=== PATIENT | female | born 1930 | race Caucasian/White ===

== ENCOUNTER 2016-10-22 07:51 | Inpatient (IN) | payer OTHER ==
[~2016-10-22] VITALS: Ht 167.6 cm; Wt 76.7 kg
[~2016-10-22 07:51] MED LIST: ACET325T21 PO; AMIO200T PO; APIX5TAB PO; BENZ100C2 PO; CHOL500016 PO; LEVO50TA5 PO; LISI10TA2 PO; MELO-150 PO; METO-269 PO; METO100T11 PO; MOVANTIK25 MG PO; Metoprolol Tartrate PO; NIFE30TA9 PO; OXYC20TA34 PO; POLY17PO5 PO; RANI75TA95 PO; SERT50TA8 PO
--- NOTE | 2016-10-22 08:37 | PHYS DOC ---
Past Medical History Past Medical History: Anxiety, GERD, High Cholesterol, Hypertension, Hypothyroid, Other Additional Past Medical Histor: OSTEOARTHRITIS, VIT D. DEF. Past Surgical History: Appendectomy, Cholecystectomy, Hip Replacement Alcohol Use: None Drug Use: None Adult General Chief Complaint Chief Complaint: FLANK PAIN [facility] HPI Patient is a 86 year old female who presents with family for evaluation of decreased urine output over the past 2-3 days. States she takes Lasix and is making less urine than usual. She denies dysuria or urinary hesitancy. She denies abdominal pain. She denies fever or chills, nausea or vomiting. She does also note some low back pain and rash along left flank that is suspicious for shingles. She states she has never had shingles before. Review of Systems Review of Systems Constitutional: Denies fever or chills [] Eyes: Denies change in visual acuity, redness, or eye pain [] HENT: Denies nasal congestion or sore throat [] Respiratory: Denies cough or shortness of breath [] Cardiovascular: No additional information not addressed in HPI [] GI: Denies abdominal pain, nausea, vomiting, bloody stools or diarrhea [] : Denies dysuria or hematuria [] Musculoskeletal: Denies joint pain [] Integument: Denies skin lesions [] Neurologic: Denies headache, focal weakness or sensory changes [] Endocrine: Denies polyuria or polydipsia [] Allergies Allergies Allergies Coded Allergies Type Severity Reaction Last Updated Verified No Known Drug Allergies 05/31/15 No Physical Exam Physical Exam Constitutional: Well developed, well nourished, no acute distress, non-toxic appearance. [] HENT: Normocephalic, atraumatic, bilateral external ears normal, oropharynx moist, no oral exudates, nose normal. [] Eyes: PERRLA, EOMI. [] Neck: Normal range of motion, supple. [] Cardiovascular:Heart rate regular rhythm [] Lungs & Thorax: Bilateral breath sounds clear to auscultation [] Abdomen: Bowel sounds normal, soft, no tenderness, no masses, no pulsatile masses. [] Skin: Warm, dry, no erythema. [] Back: No midline spinal tenderness, no CVA tenderness. Left flank with dermatomal distribution of appropriately tender papulovesicular rash without induration/crepitance/fluctuance [] Extremities: No tenderness, ROM intact, no edema. [] Neurologic: Alert and oriented X 3, normal motor function, normal sensory function, no focal deficits noted. [] Psychologic: Affect normal, judgement normal, mood normal. [] Current Patient Data Vital Signs Vital Signs Date Time Temp Pulse Resp B/P Pulse Ox O2 Delivery O2 Flow Rate FiO2 10/22/16 08:10 98.5 65 22 196/81 96 Room Air 98.5 Lab Values Laboratory Tests Test 10/22/16 07:53 10/22/16 09:19 Urine Collection Type Unknown Urine Color Yellow Urine Clarity Clear Urine pH 6.5 Urine Specific [place] 1.015 Urine Protein Negativemg/dL (NEG-TRACE) Urine Glucose (UA) Negativemg/dL (NEG) Urine Ketones (Stick) Negativemg/dL (NEG) Urine Blood Negative (NEG) Urine Nitrite Negative (NEG) Urine Bilirubin Negative (NEG) Urine Urobilinogen Dipstick 0.2mg/dL (0.2 mg/dL) Urine Leukocyte Esterase Negative (NEG) Urine RBC 0/HPF (0-2) Urine WBC 0/HPF (0-4) Urine Squamous Epithelial Cells Many/LPF Urine Bacteria 0/HPF (0-FEW) Urine Hyaline Casts Many/HPF White Blood Count 4.9x10^3/uL (4.0-11.0) Red Blood Count 3.39x10^6/uL (3.50-5.40) L Hemoglobin 10.6g/dL (12.0-15.5) L Hematocrit 30.6% (36.0-47.0) L Mean Corpuscular Volume 90fL (79-100) Mean Corpuscular Hemoglobin 31pg (25-35) Mean Corpuscular Hemoglobin Concent 35g/dL (31-37) Red Cell Distribution Width 13.5% (11.5-14.5) Platelet Count 213x10^3/uL (140-400) Neutrophils (%) (Auto) 80% (31-73) H Lymphocytes (%) (Auto) 11% (24-48) L Monocytes (%) (Auto) 8% (0-9) Eosinophils (%) (Auto) 0% (0-3) Basophils (%) (Auto) 1% (0-3) Neutrophils # (Auto) 3.9x10^3uL (1.8-7.7) Lymphocytes # (Auto) 0.5x10^3/uL (1.0-4.8) L Monocytes # (Auto) 0.4x10^3/uL (0.0-1.1) Eosinophils # (Auto) 0.0x10^3/uL (0.0-0.7) Basophils # (Auto) 0.0x10^3/uL (0.0-0.2) Sodium Level 139mmol/L (136-145) Potassium Level 2.8mmol/L (3.5-5.1) *L Chloride Level 96mmol/L (98-107) L Carbon Dioxide Level 34mmol/L (21-32) H Anion Gap 9 (6-14) Blood Urea Nitrogen 64mg/dL (7-20) H Creatinine 2.2mg/dL (0.6-1.0) H Estimated GFR (Cockcroft-Gault) 21.1 Glucose Level 107mg/dL (70-99) H Calcium Level 9.6mg/dL (8.5-10.1) Laboratory Tests 10/22/16 09:19 Laboratory Tests 10/22/16 09:19 Course & Med Decision Making Course & Med Decision Making Pertinent Labs and Imaging studies reviewed. (See chart for details) She has shingles of her left flank. Lab evaluation is remarkable for hypokalemia and acute renal failure. Potassium ordered po for replacement. Will admit for further treatment of acute renal failure. Discussed case with Dr. Altamirano, on-call for Dr. Fajardo, who will admit. Dragon Disclaimer Dragon Disclaimer This electronic medical record was generated, in whole or in part, using a voice recognition dictation system. Departure Departure Impression: Primary Impression: Acute renal failure Additional Impression: Shingles Disposition: ADMITTED INPATIENT Condition: STABLE Referrals: MARYCRUZ FAJARDO MD (PCP) Problem Qualifiers Primary Impression: Acute renal failure Acute renal failure type: unspecified Qualified Code: N17.9 - Acute kidney failure, unspecified Additional Impression: Shingles Herpes zoster complications: without complications Qualified Code: B02.9 - Zoster without complications Eladia CONNELL MD Oct 22, 2016 08:37
[2016-10-22 09:06] LABS: BILIRUBIN,URINE NEGATIVE (NEG); GLUCOSE,URINE NEGATIVE (NEG); NITRITE,URINE NEGATIVE (NEG); PH,URINE 6.5; PROTEIN,URINE NEGATIVE (NEG-TRACE); UROBILINOGEN,URINE 0.2 mg/dL (0.2 mg/dL)
[2016-10-22 09:13] LABS: BACTERIA,URINE 0 /HPF (0-FEW); RBC,URINE 0 /HPF (0-2); SQUAMOUS EPITHELIAL CELL,UR MANY /LPF; WBC,URINE 0 /HPF (0-4)
[2016-10-22 09:30] LABS: BASO % 1 % (0-3); EOS % 0 % (0-3); HEMATOCRIT 30.6 % (36.0-47.0); HEMOGLOBIN 10.6 g/dL (12.0-15.5); LYMPH # 0.5 x10^3/uL (1.0-4.8); LYMPH % 11 % (24-48); MEAN CORPUSCULAR HEMOGLOBIN 31 pg (25-35); MEAN CORPUSCULAR HGB CONC 35 g/dL (31-37); MEAN CORPUSCULAR VOLUME 90 fL (79-100); MONO % 8 % (0-9); NEUT % 80 % (31-73); PLATELET COUNT 213 x10^3/uL (140-400); RED BLOOD COUNT 3.39 x10^6/uL (3.50-5.40); RED CELL DISTRIBUTION WIDTH 13.5 % (11.5-14.5); WHITE BLOOD COUNT 4.9 x10^3/uL (4.0-11.0)
[2016-10-22 09:43] LABS: CALCIUM 9.6 mg/dL (8.5-10.1); CREATININE 2.2 mg/dL (0.6-1.0); GFR 21.1
[2016-10-22 09:45] LABS: POTASSIUM 2.8 mmol/L (3.5-5.1)
[2016-10-22] MEDS ORDERED: IV NORMAL SALINE 1000ML BAG 1,000 ML IV ONE (10:15)
[2016-10-22] MEDS ORDERED: FENTANYL PF 100 MCG/2 ML VIAL. IV ONE (10:45)
[2016-10-22] MEDS ORDERED: POTASSIUM CHLORIDE 20 MEQ TABLET.ER. PO ONE (10:45)
[2016-10-22] MEDS ORDERED: ACYCLOVIR 200 MG CAPSULE PO ONE (12:00)
[2016-10-22 12:45] VITALS: BP 151/68
--- NOTE | 2016-10-22 14:28 | ACF ---
Admission Forms Criteria HYPONATREMIA; HYPERNATREMIA; HYPOKALEMIA; HYPERKALEMIA; HYPOCALCEMIA; HYPERCALCEMIA Clinical Indications for Inpatient Care (Place 'X' for any and all applicable criteria): Ongoing inpatient care may be indicated for ANY ONE of the following [G](1)(2)(3 )(5): [ ]I. Hyponatremia with ANY ONE of the following: [ ]a) Sodium less than 130 mEq/L (mmol/L) (new) (6)(22) [ ]b) Sodium less than 135 mEq/L (mmol/L) with ANY ONE of the following: [ ]i) Severe medical etiology requiring inpatient management (eg, heart failure, hypovolemia) [ ]ii) Altered mental status [ ]iii) Seizures [ ]II. Hypernatremia with ANY ONE of the following: [ ]a) Sodium greater than 155 mEq/L (mmol/L) [ ]b) Sodium greater than 150 mEq/L (mmol/L) with ANY ONE of the following: [ ] i) Altered mental status [ ]ii) Seizures [ ]iii) Severe medical etiology (eg, hypovolemia, diabetes insipidus) [ ]iv) Severe weakness [ ]v) Severe medical etiology (eg, hemolysis, infection, drug overdose) [X]III. Hypokalemia with ANY ONE of the following: [ ]a) Potassium less than 2.5 mEq/L (mmol/L) despite outpatient and emergency treatment [X]b) Potassium less than 3.0 mEq/L (mmol/L) with ANY ONE of the following: [ ]i) Weakness [ ]ii) Cardiac abnormality (eg, arrhythmia, conduction disturbance) [ ]iii) Cardiac ischemia [ ]iv) Ileus [X]v) Ongoing medical cause requiring inpatient management. ( e.g., acute renal wasting, SIADH) [ ]vi) Other severe symptoms [ ] IV. Hyperkalemia with ANY ONE of the following: [ ]a) Potassium greater than 6.5 mEq/L (mmol/L) [ ]b) Potassium greater than 5 mEq/L (mmol/L) with ANY ONE of the following: [ ]i) Severe ECG findings [H] [ ]ii) Acute worsening of renal failure (creatinine greater than 2.5 mg/dL (221 micromoles/L) or significant elevation for age and size) [ ] V. Hypocalcemia with ANY ONE of the following: [ ]a) Calcium less than 7 mg/dL (1.75 mmol/L) despite outpatient and emergency treatment(19) [ ]b) Calcium less than 8 mg/dL (2 mmol/L) with significant symptoms or findings; examples include: [ ]i) Cardiac abnormality (eg, arrhythmia or conduction disturbance) [ ]ii) Altered mental status [ ]iii) Seizures [ ]iv) Breathing difficulty [ ]v) Muscle spasms [ ]. Hypercalcemia with ANY ONE of the following: [ ]a) Calcium greater than 14 mg/dL (3.5 mmol/L) [ ]b) Calcium greater than 12 mg/dL (3 mmol/L) with ANY ONE of the following: [ ]i) Significant dehydration or hypovolemia as indicated by ANY ONE of the following(2): [ ]1. Clinically significant dehydration as indicated by ANY ONE of the following: [ ]A. Acute loss of weight from baseline (5% of body weight in adults, 9% in pediatric patients) [ ]B. Hemodynamic instability [ ]C. Acute renal failure [ ]D. Serum sodium greater than 150 mEq/L (mmol/L) [ ]2) Dehydration that is persistent indicated by ALL of the following: [ ]A. Oral rehydration therapy not tolerated or insufficient to adequately correct dehydration [ ]B. Appropriate intravenous treatment (eg, fluids ) does not readily correct dehydration ie, after 12 to 24 hours of treatment) [ ]ii) Significant symptoms or findings; examples include: [ ]1) Altered mental status [ ]2) Cardiac abnormality (eg, arrhythmia, conduction disturbance) [ ]3) Cardiac abnormality (eg, arrhythmia, conduction disturbance) The original [employer] [employer] content created by [employer] [facility] [employer] has been revised. The portions of the content which have been revised are identified through the use of italic text or in bold, and [facility] has neither reviewed nor approved the modified material. All other unmodified content is copyright [facility] [employer] Please see references footnoted in the original [facility] [employer] edition 2016 Admission Criteria Met?: Yes GARRY GONZALEZ Oct 22, 2016 14:28
[2016-10-22 15:00] VITALS: BP 100/62
[2016-10-22] MEDS ORDERED: ACETAMINOPHEN 325 MG TABLET. PO PRN (15:45)
[2016-10-22] MEDS ORDERED: ONDANSETRON PF 4 MG/2 ML VIAL. IV PRN (15:45)
[2016-10-22] MEDS ORDERED: FENTANYL PF 100 MCG/2 ML VIAL. IV PRN (15:45)
[2016-10-22] MEDS ORDERED: FAMOTIDINE 20 MG TABLET. PO PRN (17:54)
[2016-10-22] MEDS: METOPROLOL SUCC 24HR ER 50 MG TAB.ER.24H. PO SCH ×2 (18:00→18:24)
[2016-10-22] MEDS: POTASSIUM CL 20MEQ D5-0.45NACL 1,000 ML IV SCH (18:25)
[2016-10-22 19:00] VITALS: BP 112/49
--- NOTE | 2016-10-22 19:51 | PDOC ---
Provider Note Provider Note H&P dictated # [id number] Kaley RUIZ MD Oct 22, 2016 19:51
[2016-10-22] MEDS: APIXABAN 5 MG TABLET. PO SCH (21:23)
[2016-10-22] MEDS: OXYCODONE ER 10 MG TAB.ER.12H. PO SCH (21:24)
--- NOTE | 2016-10-22 22:59 | HP ---
ADMIT DATE: 10/22/2016 ADMISSION DIAGNOSIS: Acute renal failure. HISTORY OF PRESENT ILLNESS: This is an 86-year-old white female who has noticed a decrease in urine output over the previous 2-3 days. She has a history of paroxysmal atrial fibrillation and takes Lasix as a daily diuretic tablet. She has been able to eat and drink and taken fluids. She typically takes Tylenol for aches and pains, despite having meloxicam on her routine meds. She is also on lisinopril. She was seen in the Emergency Room and evaluated and found to have acute renal failure with a rise in her creatinine from her baseline. She also appears to have shingles along her left flank area. PAST MEDICAL HISTORY: Significant for anxiety, hypertension, hyperlipidemia, gastroesophageal reflux disease, hypothyroidism, osteoarthritis and vitamin D deficiency. PAST SURGICAL HISTORY: Include appendectomy, cholecystectomy and a hip replacement. FAMILY HISTORY: Daughter with hypertension. Brother with diabetes. Son with liver disease. Son with kidney failure and a brother with heart attack. SOCIAL HISTORY: No tobacco or alcohol. ALLERGIES: She has no known drug allergies. HOME MEDICATIONS: Include Tylenol 325 q. 4 hours p.r.n.; amiodarone 200 mg daily; Eliquis 5 mg b.i.d.; Tessalon 100 mg t.i.d. p.r.n.; vitamin D 5000 units weekly; levothyroxine 50 mcg daily; lisinopril 10 mg daily; meloxicam 15 mg daily, but she says she is ____ taking that; metoprolol 50 mg daily; Movantik 25 mg daily; oxycodone 20 mg extended release b.i.d.; MiraLax 17 g daily; ranitidine 75 mg b.i.d. and sertraline 50 mg at bedtime. REVIEW OF SYSTEMS: Mainly significant for arthritic type joint pain. HEENT: Nonspecific. CARDIAC: Negative for chest pain. PULMONARY: Negative for shortness of breath. She has had some cough. GASTROINTESTINAL: Positive for chronic constipation. GENITOURINARY: Negative for dysuria. NEUROLOGIC: Negative for mental status changes or confusion. PSYCHIATRIC: Negative for depression. SKIN: Negative for bleeding or bruising. PHYSICAL EXAMINATION: VITAL SIGNS: She is in no acute distress. She has a little bit of essential type tremor. HEENT: ____ nonspecific. Mucous membranes are little dry. Conjunctivae are clear. No sinus congestion. NECK: Supple. HEART: Irregularly irregular with controlled rate. LUNGS: Clear to auscultation. ABDOMEN: Soft, nondistended, nontender. EXTREMITIES: There is no clubbing, cyanosis or peripheral edema. SKIN: Turgor is a bit tented. Strength is fair. No focal weakness is noted. LABORATORY DATA: She has anemia with hemoglobin of 10.6, hematocrit of 30.6, platelets at 213. White count is normal, potassium is low at 2.8. BUN is elevated at 64, creatinine is low at 2.2 and glucose 107. Urinalysis is nonspecific. No imaging tests were done. ASSESSMENT: 1. Acute renal failure appears to due to prerenal azotemia, possibly nonsteroidal antiinflammatory drug use, possibly lisinopril use. 2. Anemia. 3. Hypokalemia. 4. History of chronic atrial fibrillation. 5. Hypertension. 6. History of diverticulitis and irritable bowel. 7. History of urinary tract infection and urinary retention. 8. Hypothyroidism. 9. Depression with anxiety. 10. Acute shingles on the left hip. PLAN: She is admitted. She is being hydrated, electrolytes are bein9g replaced. We will hold her lisinopril, hold her meloxicam. Monitor her renal function. She has a vesicular rash of her left lower flank area consistent with acute shingles, which we will treat with acyclovir. W Amie RUIZ MD DR: LYNNETTE/dunia JOB#: [id number] / [id number]
[2016-10-22 23:00] VITALS: BP 143/61
[2016-10-23 03:00] VITALS: BP 130/59
[2016-10-23 05:15] LABS: CALCIUM 8.9 mg/dL (8.5-10.1); CREATININE 1.7 mg/dL (0.6-1.0); GFR 28.4; POTASSIUM 3.1 mmol/L (3.5-5.1)
[2016-10-23 05:21] LABS: CHOLESTEROL/HDL RATIO 3.9
[2016-10-23] MEDS: LEVOTHYROXINE 50 MCG TABLET PO SCH (05:56)
[2016-10-23 07:00] VITALS: BP 154/69
[2016-10-23] MEDS: AMIODARONE HCL 200 MG TABLET PO SCH (08:46)
[2016-10-23] MEDS: NALOXEGOL OXALATE 25 MG TABLET. PO SCH (08:46)
[2016-10-23] MEDS: OXYCODONE ER 10 MG TAB.ER.12H. PO SCH ×2 (08:47→20:20)
[2016-10-23] MEDS: APIXABAN 5 MG TABLET. PO SCH ×2 (08:47→20:20)
[2016-10-23] MEDS: SERTRALINE 50 MG TABLET. PO SCH (08:47)
[2016-10-23] MEDS: METOPROLOL SUCC 24HR ER 50 MG TAB.ER.24H. PO SCH (08:53)
--- NOTE | 2016-10-23 08:55 | PDOC ---
PROGRESS NOTES Subjective Subjective Patient denies any acute events overnight and has no complaints this morning. States she did not sleep well due to the IV fluids running during the night. She reports that she has been urinating much more frequently than she was prior to admission. Denies chest pain, abdominal pain, or shortness of breath. Objective Objective Vital Signs Date Time Temp Pulse Resp B/P Pulse Ox O2 Delivery O2 Flow Rate FiO2 10/23/16 08:46 56 154/69 10/23/16 07:00 98.2 18 95 Room Air 98.2 Intake and Output 10/23/16 07:00 Intake Total 100 ml Output Total 700 ml Balance -600 ml Intake Oral 100 ml Output Urine Total 700 ml Physical Exam General: Alert, Oriented X3, No acute distress HEENT: Atraumatic Neuro: Normal speech Psych/Mental Status: Mental status NL Assessment Assessment Problems Medical Problems: (1) Acute renal failure Status: Acute (2) Shingles Status: Acute (3) Hypokalemia Status: Acute Plan Plan of Care Medical Problems: (1) Acute renal failure- BUN and Creatinine improving, re-check CMP tomorrow morning, continue IVF Status: Acute (2) Shingles- stable Status: Acute (3) Hypokalemia- improved but still low, continue to replace potassium today Status: Acute Comment Review of Relevant I have reviewed the following items jassi (where applicable) has been applied. Labs Laboratory Tests Test 10/22/16 07:53 10/22/16 09:16 10/22/16 09:19 10/23/16 04:32 Urine Collection Type Unknown Urine Color Yellow Urine Clarity Clear Urine pH 6.5 Urine Specific [place] 1.015 Urine Protein Negativemg/dL (NEG-TRACE) Urine Glucose (UA) Negativemg/dL (NEG) Urine Ketones (Stick) Negativemg/dL (NEG) Urine Blood Negative (NEG) Urine Nitrite Negative (NEG) Urine Bilirubin Negative (NEG) Urine Urobilinogen Dipstick 0.2mg/dL (0.2 mg/dL) Urine Leukocyte Esterase Negative (NEG) Urine RBC 0/HPF (0-2) Urine WBC 0/HPF (0-4) Urine Squamous Epithelial Cells Many/LPF Urine Bacteria 0/HPF (0-FEW) Urine Hyaline Casts Many/HPF Thyroid Stimulating Hormone (TSH) 1.184uIU/mL (0.358-3.74) White Blood Count 4.9x10^3/uL (4.0-11.0) Red Blood Count 3.39x10^6/uL (3.50-5.40) Hemoglobin 10.6g/dL (12.0-15.5) Hematocrit 30.6% (36.0-47.0) Mean Corpuscular Volume 90fL (79-100) Mean Corpuscular Hemoglobin 31pg (25-35) Mean Corpuscular Hemoglobin Concent 35g/dL (31-37) Red Cell Distribution Width 13.5% (11.5-14.5) Platelet Count 213x10^3/uL (140-400) Neutrophils (%) (Auto) 80% (31-73) Lymphocytes (%) (Auto) 11% (24-48) Monocytes (%) (Auto) 8% (0-9) Eosinophils (%) (Auto) 0% (0-3) Basophils (%) (Auto) 1% (0-3) Neutrophils # (Auto) 3.9x10^3uL (1.8-7.7) Lymphocytes # (Auto) 0.5x10^3/uL (1.0-4.8) Monocytes # (Auto) 0.4x10^3/uL (0.0-1.1) Eosinophils # (Auto) 0.0x10^3/uL (0.0-0.7) Basophils # (Auto) 0.0x10^3/uL (0.0-0.2) Sodium Level 139mmol/L (136-145) 142mmol/L (136-145) Potassium Level 2.8mmol/L (3.5-5.1) 3.1mmol/L (3.5-5.1) Chloride Level 96mmol/L (98-107) 102mmol/L (98-107) Carbon Dioxide Level 34mmol/L (21-32) 33mmol/L (21-32) Anion Gap 9 (6-14) 7 (6-14) Blood Urea Nitrogen 64mg/dL (7-20) 49mg/dL (7-20) Creatinine 2.2mg/dL (0.6-1.0) 1.7mg/dL (0.6-1.0) Estimated GFR (Cockcroft-Gault) 21.1 28.4 Glucose Level 107mg/dL (70-99) 114mg/dL (70-99) Calcium Level 9.6mg/dL (8.5-10.1) 8.9mg/dL (8.5-10.1) Triglycerides Level 66mg/dL (0-150) Cholesterol Level 217mg/dL (0-200) LDL Cholesterol, Calculated 148mg/dL (0-100) VLDL Cholesterol, Calculated 13mg/dL (0-40) HDL Cholesterol 56mg/dL (40-60) Cholesterol/HDL Ratio 3.9 Laboratory Tests Test 10/22/16 09:16 10/22/16 09:19 10/23/16 04:32 Thyroid Stimulating Hormone (TSH) 1.184uIU/mL (0.358-3.74) White Blood Count 4.9x10^3/uL (4.0-11.0) Red Blood Count 3.39x10^6/uL (3.50-5.40) Hemoglobin 10.6g/dL (12.0-15.5) Hematocrit 30.6% (36.0-47.0) Mean Corpuscular Volume 90fL (79-100) Mean Corpuscular Hemoglobin 31pg (25-35) Mean Corpuscular Hemoglobin Concent 35g/dL (31-37) Red Cell Distribution Width 13.5% (11.5-14.5) Platelet Count 213x10^3/uL (140-400) Neutrophils (%) (Auto) 80% (31-73) Lymphocytes (%) (Auto) 11% (24-48) Monocytes (%) (Auto) 8% (0-9) Eosinophils (%) (Auto) 0% (0-3) Basophils (%) (Auto) 1% (0-3) Neutrophils # (Auto) 3.9x10^3uL (1.8-7.7) Lymphocytes # (Auto) 0.5x10^3/uL (1.0-4.8) Monocytes # (Auto) 0.4x10^3/uL (0.0-1.1) Eosinophils # (Auto) 0.0x10^3/uL (0.0-0.7) Basophils # (Auto) 0.0x10^3/uL (0.0-0.2) Sodium Level 139mmol/L (136-145) 142mmol/L (136-145) Potassium Level 2.8mmol/L (3.5-5.1) 3.1mmol/L (3.5-5.1) Chloride Level 96mmol/L (98-107) 102mmol/L (98-107) Carbon Dioxide Level 34mmol/L (21-32) 33mmol/L (21-32) Anion Gap 9 (6-14) 7 (6-14) Blood Urea Nitrogen 64mg/dL (7-20) 49mg/dL (7-20) Creatinine 2.2mg/dL (0.6-1.0) 1.7mg/dL (0.6-1.0) Estimated GFR (Cockcroft-Gault) 21.1 28.4 Glucose Level 107mg/dL (70-99) 114mg/dL (70-99) Calcium Level 9.6mg/dL (8.5-10.1) 8.9mg/dL (8.5-10.1) Triglycerides Level 66mg/dL (0-150) Cholesterol Level 217mg/dL (0-200) LDL Cholesterol, Calculated 148mg/dL (0-100) VLDL Cholesterol, Calculated 13mg/dL (0-40) HDL Cholesterol 56mg/dL (40-60) Cholesterol/HDL Ratio 3.9 Medications Current Medications Sodium Chloride (Iv Sodium Chloride 0.9% 1000ml Bag) 1,000 ml @ 125 mls/hr 1X ONCE IV Last administered on 10/22/16 10:28; Start 10/22/16 at 10:15; Stop at 18:14; Status DC Fentanyl Citrate (Fentanyl 2ml Vial) 25 mcg 1X ONCE IV Last administered on 11:22; Start 10/22/16 at 10:45; Stop 10/22/16 at 10:46; Status DC Potassium Chloride (Klor-Con) 40 meq 1X ONCE PO Last administered on 10/22/16 11:22; Start 10/22/16 at 10:45; Stop 10/22/16 at 10:46; Status DC Acyclovir (Zovirax) 800 mg 1X ONCE PO Last administered on 10/22/16 16:21; Start 10/22/16 at 12:00; Stop 10/22/16 at 12:01; Status DC Ondansetron HCl (Zofran) 4 mg PRN Q8HRS PRN IV NAUSEA/VOMITING; Start 10/22/16 at 15:45; Stop 10/23/16 at 15:44 Fentanyl Citrate (Fentanyl 2ml Vial) 50 mcg PRN Q2HR PRN IV PAIN Last administered on 10/23/16 03:19; Start 10/22/16 at 15:45; Stop 10/23/16 at 15:44 Acetaminophen (Tylenol) 650 mg PRN Q4HRS PRN PO FEVER; Start 10/22/16 at 15:45; Stop 10/23/16 at 15:44 Amiodarone HCl (Cordarone) 200 mg DAILY PO Last administered on 10/23/16 08:46 ; Start 10/23/16 at 09:00 Apixaban (Eliquis) 5 mg BID PO Last administered on 10/23/16 08:47; Start at 21:00 Levothyroxine Sodium (Synthroid) 50 mcg DAILY06 PO Last administered on 05:56; Start 10/23/16 at 06:00 Metoprolol Succinate (Toprol Xl) 50 mg DAILY PO ; Start 10/22/16 at 18:00 Naloxegol (Movantik) 25 mg DAILY08 PO Last administered on 10/23/16 08:46; Start 10/23/16 at 08:00 Sertraline HCl (Zoloft) 50 mg DAILY PO Last administered on 10/23/16 08:47; Start 10/23/16 at 09:00 Vitamin D (Vitamin D3) 5,000 unit WEEKLY PO Last administered on 10/23/16 08:46 ; Start 10/23/16 at 09:00 Oxycodone HCl (Oxycontin) 20 mg Q12HR PO Last administered on 10/23/16 08:47; Start 10/22/16 at 21:00 Famotidine 20 mg 20 mg PRN Q24HRS PRN PO HEARTBURN.; Start 10/22/16 at 17:54 Potassium Chloride/Dextrose/ Sod Cl (KCl 20 Meq In D5W-1/2 NS) 1,000 ml @ 60 mls/hr [id number] IV Last administered on 10/22/16t 18:25; Start 10/22/16 at 18:00 Active Scripts Active Cordarone (Amiodarone Hcl) 200 Mg Tablet 200 Mg PO DAILY Toprol Xl (Metoprolol Succinate) 50 Mg Tab.er.24h 50 Mg PO DAILY Eliquis (Apixaban) 5 Mg Tablet 5 Mg PO BID Reported Ranitidine Hcl 75 Mg Tablet 75 Mg PO BID PRN Benzonatate 100 Mg Capsule 1-2 Cap PO TID PRN Acetaminophen 325 Mg Tablet 325 Mg PO Q4HRS PRN Oxycontin (Oxycodone HCl) 20 Mg Tab.er.12h 1 Tab PO BID Vitamin D3 (Cholecalciferol (Vitamin D3)) 5,000 Unit Tablet 1 Tab PO WEEKLY Sertraline Hcl 50 Mg Tablet 50 Mg PO DAILY Miralax (Polyethylene Glycol 3350) 17 Gm Powd.pack 1 Packet PO DAILY Movantik (Naloxegol Oxalate) 25 Mg Tablet 25 Mg PO DAILY08 Meloxicam 15 Mg Tablet 1 Tab PO DAILY Lisinopril 10 Mg Tablet 1 Tab PO DAILY Levothyroxine Sodium 50 Mcg Tablet 1 Tab PO DAILY Vitals/I & O Vital Sign - Last 24 Hours 10/22/16 10/22/16 10/22/16 10/22/16 09:11 09:39 10:09 10:39 Pulse 60 58 58 60 Resp 23 13 18 20 B/P 171/73 162/71 156/67 156/70 Pulse Ox 97 97 96 98 O2 Delivery Room Air Room Air Room Air Room Air 10/22/16 10/22/16 10/22/16 10/22/16 11:05 11:35 12:05 12:45 Temp 97.7 97.7 Pulse 72 60 60 62 Resp 24 18 18 20 B/P 183/73 147/65 171/71 151/68 Pulse Ox 96 98 97 94 O2 Delivery Room Air Room Air Room Air Room Air 10/22/16 10/22/16 10/22/16 10/22/16 12:45 15:00 18:00 19:00 Temp 97.7 98.0 97.9 97.7 98.0 97.9 Pulse 62 63 63 74 Resp 20 18 18 B/P 151/68 100/62 100/62 112/49 Pulse Ox 94 96 92 O2 Delivery Room Air Room Air Room Air 10/22/16 10/22/16 10/22/16 10/23/16 20:00 21:24 23:00 01:28 Temp 97.8 97.8 Pulse 63 Resp 20 20 18 B/P 143/61 Pulse Ox 93 O2 Delivery Room Air Room Air Room Air Room Air 10/23/16 10/23/16 10/23/16 10/23/16 03:00 03:19 03:55 07:00 Temp 97.9 98.2 97.9 98.2 Pulse 70 56 Resp 20 18 18 B/P 130/59 154/69 Pulse Ox 98 95 O2 Delivery Room Air Room Air Room Air Room Air 10/23/16 08:46 Pulse 56 B/P 154/69 Intake and Output 10/22/16 10/22/16 10/23/16 15:00 23:00 07:00 Intake Total 100 ml Output Total 300 ml 400 ml Balance -200 ml -400 ml Kaley RUIZ MD Oct 23, 2016 08:55
[2016-10-23] MEDS ORDERED: ZOLPIDEM 5 MG TABLET. PO PRN (09:00)
[2016-10-23] MEDS ORDERED: CHOLECALCIFEROL (VITAMIN D3) 5,000 UNIT CAPSULE PO SCH (09:00)
[2016-10-23] MEDS: POTASSIUM CL 20MEQ D5-0.45NACL 1,000 ML IV SCH (10:40)
[2016-10-23 11:03] VITALS: BP 134/63
[2016-10-23] MEDS: ANTI-COAG MONITOR BY PHARMACY. MC PRN (14:45)
[2016-10-23 15:30] VITALS: BP 116/64
[2016-10-23 19:00] VITALS: BP 164/82
[2016-10-23 23:00] VITALS: BP 157/68
[2016-10-24] MEDS: POTASSIUM CL 20MEQ D5-0.45NACL 1,000 ML IV SCH ×2 (02:00→20:00)
[2016-10-24 03:00] VITALS: BP 170/77
[2016-10-24] MEDS: LEVOTHYROXINE 50 MCG TABLET PO SCH (06:17)
[2016-10-24 06:35] LABS: BASO % 1 % (0-3); EOS % 1 % (0-3); HEMATOCRIT 31.1 % (36.0-47.0); HEMOGLOBIN 10.5 g/dL (12.0-15.5); LYMPH # 0.7 x10^3/uL (1.0-4.8); LYMPH % 15 % (24-48); MEAN CORPUSCULAR HEMOGLOBIN 32 pg (25-35); MEAN CORPUSCULAR HGB CONC 34 g/dL (31-37); MEAN CORPUSCULAR VOLUME 95 fL (79-100); MONO % 14 % (0-9); NEUT % 70 % (31-73); PLATELET COUNT 177 x10^3/uL (140-400); RED BLOOD COUNT 3.29 x10^6/uL (3.50-5.40); RED CELL DISTRIBUTION WIDTH 13.4 % (11.5-14.5); WHITE BLOOD COUNT 4.5 x10^3/uL (4.0-11.0)
[2016-10-24 06:51] LABS: ALBUMIN 3.3 g/dL (3.4-5.0); ALBUMIN/GLOBULIN RATIO 1.1 (1.0-1.7); CALCIUM 8.8 mg/dL (8.5-10.1); CREATININE 1.3 mg/dL (0.6-1.0); GFR 38.7; POTASSIUM 3.1 mmol/L (3.5-5.1); TOTAL BILIRUBIN 0.7 mg/dL (0.2-1.0); TOTAL PROTEIN 6.3 g/dL (6.4-8.2)
[2016-10-24 07:00] VITALS: BP 168/85
[2016-10-24] MEDS: APIXABAN 5 MG TABLET. PO SCH ×2 (08:54→20:29)
[2016-10-24] MEDS: AMIODARONE HCL 200 MG TABLET PO SCH (08:54)
[2016-10-24] MEDS: SERTRALINE 50 MG TABLET. PO SCH (08:54)
[2016-10-24] MEDS: NALOXEGOL OXALATE 25 MG TABLET. PO SCH (08:54)
[2016-10-24] MEDS: OXYCODONE ER 10 MG TAB.ER.12H. PO SCH ×2 (08:55→20:29)
[2016-10-24] MEDS: METOPROLOL SUCC 24HR ER 50 MG TAB.ER.24H. PO SCH (09:00)
[2016-10-24 11:00] VITALS: BP 176/83
[2016-10-24 15:00] VITALS: BP 142/67
[2016-10-24] MEDS ORDERED: POTASSIUM CHLORIDE 20 MEQ TABLET.ER. PO ONE (16:15)
--- NOTE | 2016-10-24 16:20 | PDOC ---
PROGRESS NOTES Subjective Subjective She is more tired today as IV in bend of arm and when she sleeps it occludes then wakes her up, she is still hypovolumic and hypokalemic though but her acute renal failure is improving Objective Objective Vital Signs Date Time Temp Pulse Resp B/P Pulse Ox O2 Delivery O2 Flow Rate FiO2 10/24/16 15:00 98.1 67 20 142/67 93 Room Air 98.1 Intake and Output 10/24/16 07:00 Intake Total 1000 ml Output Total 300 ml Balance 700 ml IV Total 1000 ml Output Urine Total 300 ml # Voids 3 # Bowel Movements 1 Physical Exam Abdomen: Soft Heart: Other (irregularly irreg with Afib on monitor, controlled rate) Extremities: No clubbing, No cyanosis, No edema General: Alert, Oriented X3, Cooperative HEENT: Atraumatic Lungs: Clear to auscultation MUSCULOSKELETAL: No swelling Neck: Supple Neuro: Normal speech Psych/Mental Status: Mental status NL Skin: Other (shingles rash left flank) Assessment Assessment Problems Medical Problems: (1) Acute renal failure Status: Acute (2) Shingles Status: Acute Plan Plan of Care stop IV fluid prior to her going to sleep tonight, reassess lab in am, check CXR , continue shingles treatment, PT to assess strength and home needs Comment Review of Relevant I have reviewed the following items jassi (where applicable) has been applied. Labs Laboratory Tests Test 10/23/16 04:32 10/24/16 06:00 Sodium Level 142mmol/L (136-145) 141mmol/L (136-145) Potassium Level 3.1mmol/L (3.5-5.1) 3.1mmol/L (3.5-5.1) Chloride Level 102mmol/L (98-107) 103mmol/L (98-107) Carbon Dioxide Level 33mmol/L (21-32) 30mmol/L (21-32) Anion Gap 7 (6-14) 8 (6-14) Blood Urea Nitrogen 49mg/dL (7-20) 30mg/dL (7-20) Creatinine 1.7mg/dL (0.6-1.0) 1.3mg/dL (0.6-1.0) Estimated GFR (Cockcroft-Gault) 28.4 38.7 Glucose Level 114mg/dL (70-99) 101mg/dL (70-99) Calcium Level 8.9mg/dL (8.5-10.1) 8.8mg/dL (8.5-10.1) Triglycerides Level 66mg/dL (0-150) Cholesterol Level 217mg/dL (0-200) LDL Cholesterol, Calculated 148mg/dL (0-100) VLDL Cholesterol, Calculated 13mg/dL (0-40) HDL Cholesterol 56mg/dL (40-60) Cholesterol/HDL Ratio 3.9 White Blood Count 4.5x10^3/uL (4.0-11.0) Red Blood Count 3.29x10^6/uL (3.50-5.40) Hemoglobin 10.5g/dL (12.0-15.5) Hematocrit 31.1% (36.0-47.0) Mean Corpuscular Volume 95fL (79-100) Mean Corpuscular Hemoglobin 32pg (25-35) Mean Corpuscular Hemoglobin Concent 34g/dL (31-37) Red Cell Distribution Width 13.4% (11.5-14.5) Platelet Count 177x10^3/uL (140-400) Neutrophils (%) (Auto) 70% (31-73) Lymphocytes (%) (Auto) 15% (24-48) Monocytes (%) (Auto) 14% (0-9) Eosinophils (%) (Auto) 1% (0-3) Basophils (%) (Auto) 1% (0-3) Neutrophils # (Auto) 3.1x10^3uL (1.8-7.7) Lymphocytes # (Auto) 0.7x10^3/uL (1.0-4.8) Monocytes # (Auto) 0.6x10^3/uL (0.0-1.1) Eosinophils # (Auto) 0.0x10^3/uL (0.0-0.7) Basophils # (Auto) 0.0x10^3/uL (0.0-0.2) BUN/Creatinine Ratio 23 (6-20) Total Bilirubin 0.7mg/dL (0.2-1.0) Aspartate Amino Transf (AST/SGOT) 25U/L (15-37) Alanine Aminotransferase (ALT/SGPT) 17U/L (14-59) Alkaline Phosphatase 79U/L (46-116) Total Protein 6.3g/dL (6.4-8.2) Albumin 3.3g/dL (3.4-5.0) Albumin/Globulin Ratio 1.1 (1.0-1.7) Laboratory Tests Test 10/24/16 06:00 White Blood Count 4.5x10^3/uL (4.0-11.0) Red Blood Count 3.29x10^6/uL (3.50-5.40) Hemoglobin 10.5g/dL (12.0-15.5) Hematocrit 31.1% (36.0-47.0) Mean Corpuscular Volume 95fL (79-100) Mean Corpuscular Hemoglobin 32pg (25-35) Mean Corpuscular Hemoglobin Concent 34g/dL (31-37) Red Cell Distribution Width 13.4% (11.5-14.5) Platelet Count 177x10^3/uL (140-400) Neutrophils (%) (Auto) 70% (31-73) Lymphocytes (%) (Auto) 15% (24-48) Monocytes (%) (Auto) 14% (0-9) Eosinophils (%) (Auto) 1% (0-3) Basophils (%) (Auto) 1% (0-3) Neutrophils # (Auto) 3.1x10^3uL (1.8-7.7) Lymphocytes # (Auto) 0.7x10^3/uL (1.0-4.8) Monocytes # (Auto) 0.6x10^3/uL (0.0-1.1) Eosinophils # (Auto) 0.0x10^3/uL (0.0-0.7) Basophils # (Auto) 0.0x10^3/uL (0.0-0.2) Sodium Level 141mmol/L (136-145) Potassium Level 3.1mmol/L (3.5-5.1) Chloride Level 103mmol/L (98-107) Carbon Dioxide Level 30mmol/L (21-32) Anion Gap 8 (6-14) Blood Urea Nitrogen 30mg/dL (7-20) Creatinine 1.3mg/dL (0.6-1.0) Estimated GFR (Cockcroft-Gault) 38.7 BUN/Creatinine Ratio 23 (6-20) Glucose Level 101mg/dL (70-99) Calcium Level 8.8mg/dL (8.5-10.1) Total Bilirubin 0.7mg/dL (0.2-1.0) Aspartate Amino Transf (AST/SGOT) 25U/L (15-37) Alanine Aminotransferase (ALT/SGPT) 17U/L (14-59) Alkaline Phosphatase 79U/L (46-116) Total Protein 6.3g/dL (6.4-8.2) Albumin 3.3g/dL (3.4-5.0) Albumin/Globulin Ratio 1.1 (1.0-1.7) Medications Current Medications Sodium Chloride (Iv Sodium Chloride 0.9% 1000ml Bag) 1,000 ml @ 125 mls/hr 1X ONCE IV Last administered on 10/22/16 10:28; Start 10/22/16 at 10:15; Stop at 18:14; Status DC Fentanyl Citrate (Fentanyl 2ml Vial) 25 mcg 1X ONCE IV Last administered on 11:22; Start 10/22/16 at 10:45; Stop 10/22/16 at 10:46; Status DC Potassium Chloride (Klor-Con) 40 meq 1X ONCE PO Last administered on 10/22/16 11:22; Start 10/22/16 at 10:45; Stop 10/22/16 at 10:46; Status DC Acyclovir (Zovirax) 800 mg 1X ONCE PO Last administered on 10/22/16 16:21; Start 10/22/16 at 12:00; Stop 10/22/16 at 12:01; Status DC Ondansetron HCl (Zofran) 4 mg PRN Q8HRS PRN IV NAUSEA/VOMITING; Start 10/22/16 at 15:45; Stop 10/23/16 at 15:44; Status DC Fentanyl Citrate (Fentanyl 2ml Vial) 50 mcg PRN Q2HR PRN IV PAIN Last administered on 10/23/16 03:19; Start 10/22/16 at 15:45; Stop 10/23/16 at 15:44; Status DC Acetaminophen (Tylenol) 650 mg PRN Q4HRS PRN PO FEVER; Start 10/22/16 at 15:45; Stop 10/23/16 at 15:44; Status DC Amiodarone HCl (Cordarone) 200 mg DAILY PO Last administered on 10/24/16 08:54 ; Start 10/23/16 at 09:00 Apixaban (Eliquis) 5 mg BID PO Last administered on 10/24/16 08:54; Start at 21:00 Levothyroxine Sodium (Synthroid) 50 mcg DAILY06 PO Last administered on 06:17; Start 10/23/16 at 06:00 Metoprolol Succinate (Toprol Xl) 50 mg DAILY PO ; Start 10/22/16 at 18:00 Naloxegol (Movantik) 25 mg DAILY08 PO Last administered on 10/24/16 08:54; Start 10/23/16 at 08:00 Sertraline HCl (Zoloft) 50 mg DAILY PO Last administered on 10/24/16 08:54; Start 10/23/16 at 09:00 Vitamin D (Vitamin D3) 5,000 unit WEEKLY PO Last administered on 10/23/16 08:46 ; Start 10/23/16 at 09:00 Oxycodone HCl (Oxycontin) 20 mg Q12HR PO Last administered on 10/24/16 08:55; Start 10/22/16 at 21:00 Famotidine 20 mg 20 mg PRN Q24HRS PRN PO HEARTBURN.; Start 10/22/16 at 17:54 Potassium Chloride/Dextrose/ Sod Cl (KCl 20 Meq In D5W-1/2 NS) 1,000 ml @ 60 mls/hr [id number] IV Last administered on 10/24/16 02:00; Start 10/22/16 at 18:00 Zolpidem Tartrate (Ambien) 5 mg PRN QHS PRN PO INSOMNIA; Start 10/23/16 at 09:00 Info (Anti-Coagulation Monitoring By Pharmacy) 1 each PRN DAILY PRN MC SEE COMMENTS Last administered on 10/23/16 14:45; Start 10/23/16 at 13:00 Lisinopril (Prinivil) 10 mg DAILY PO ; Start 10/24/16 at 15:00 Active Scripts Active Cordarone (Amiodarone Hcl) 200 Mg Tablet 200 Mg PO DAILY Toprol Xl (Metoprolol Succinate) 50 Mg Tab.er.24h 50 Mg PO DAILY Eliquis (Apixaban) 5 Mg Tablet 5 Mg PO BID Reported Ranitidine Hcl 75 Mg Tablet 75 Mg PO BID PRN Benzonatate 100 Mg Capsule 1-2 Cap PO TID PRN Acetaminophen 325 Mg Tablet 325 Mg PO Q4HRS PRN Oxycontin (Oxycodone HCl) 20 Mg Tab.er.12h 1 Tab PO BID Vitamin D3 (Cholecalciferol (Vitamin D3)) 5,000 Unit Tablet 1 Tab PO WEEKLY Sertraline Hcl 50 Mg Tablet 50 Mg PO DAILY Miralax (Polyethylene Glycol 3350) 17 Gm Powd.pack 1 Packet PO DAILY Movantik (Naloxegol Oxalate) 25 Mg Tablet 25 Mg PO DAILY08 Meloxicam 15 Mg Tablet 1 Tab PO DAILY Lisinopril 10 Mg Tablet 1 Tab PO DAILY Levothyroxine Sodium 50 Mcg Tablet 1 Tab PO DAILY Vitals/I & O Vital Sign - Last 24 Hours 10/23/16 10/23/16 10/23/16 10/23/16 19:00 20:00 20:20 23:00 Temp 98.0 98.4 98.0 98.4 Pulse 70 59 Resp 20 18 B/P 164/82 157/68 Pulse Ox 95 93 93 O2 Delivery Room Air Room Air 10/24/16 10/24/16 10/24/16 10/24/16 03:00 07:00 08:00 08:54 Temp 97.9 97.9 97.9 97.9 Pulse 68 70 70 Resp 18 18 B/P 170/77 168/85 168/85 Pulse Ox 91 95 O2 Delivery Room Air Room Air Room Air 10/24/16 10/24/16 10/24/16 10/24/16 08:55 11:00 13:12 15:00 Temp 97.5 98.1 97.5 98.1 Pulse 89 67 Resp 20 20 B/P 176/83 142/67 Pulse Ox 95 94 94 93 O2 Delivery Room Air Room Air Room Air Room Air Intake and Output 10/23/16 10/23/16 10/24/16 15:00 23:00 07:00 Intake Total 1000 ml Output Total 100 ml 200 ml Balance -100 ml 800 ml Kaley RUIZ MD Oct 24, 2016 16:20
[2016-10-24] MEDS: LISINOPRIL 10 MG TABLET PO SCH (17:04)
--- NOTE | 2016-10-24 17:18 | DISCH ---
DISCHARGE INSTRUCTIONS Condition on Discharge Condition on Discharge: Stable Activity After Discharge Activity Instructions for Disc: Activity as tolerated Diet after Discharge Diet after Discharge: Cardiac Contacting the DRNawaf after DC Call your doctor for: If your condition worsens Follow-Up Follow up with: Dr. Fajardo within 2 weeks Kaley RUIZ MD Oct 24, 2016 17:18
[2016-10-24] MEDS ORDERED: ACYC800T PO (17:44)
--- NOTE | 2016-10-24 17:52 | PDOC ---
Provider Note Provider Note discharge dictated # [id number] Kaley RUIZ MD Oct 24, 2016 17:51
[2016-10-24] MEDS: ACYCLOVIR 200 MG CAPSULE PO SCH ×2 (18:00→20:29)
[2016-10-24 19:00] VITALS: BP 150/66
[2016-10-24 23:04] VITALS: BP 148/62
--- NOTE | 2016-10-25 00:44 | DS ---
DATE OF DISCHARGE: 10/24/2016 ADMISSION DIAGNOSIS: Acute renal failure. DISCHARGE DIAGNOSIS: Acute renal failure. ASSOCIATED DIAGNOSIS: Shingles of her left T10 dermatome. Hypertension, chronic atrial fib, hypokalemia, hypertension, chronic pain, GERD, chronic depression, in remission. HOSPITAL COURSE: This is an 86-year-old white female resident at [facility] who was not feeling well prior to admission, was seen in the Emergency Room, found to have the start of shingles on her left flank area. Found to be in acute renal failure with creatinine rise considerably above baseline and a BUN rise considerably above that. She had not been eating or drinking well. She is on NSAIDs and lisinopril. Those were held. She was started on IV fluids and hydrated. Her potassium was replaced. It is now basically normal and she is able to take an oral supplement. She had noticed a couple of days decreased urine output prior to her presentation to the ER and she was more concerned about lack of urine output at admission. It has resumed to normal. She has not had any nausea or vomiting, no diarrhea. Her shingles pain has been controlled with her pain medication. Her vesicles have worsened and coalesced throughout the entire dermatome. Blood pressure has been intermittently elevated and her lisinopril has been resumed. She was given the option of staying another night or leaving tonight. She initially wanted to stay and a chest x-ray was going to be done and a PT evaluation was going to be done, but those were cancelled as she changed her mind and wants to go. DISCHARGE MEDICATIONS: She will be discharged on Acyclovir 800 mg one 5 times daily, #35. Tylenol 325 q. 4 hours p.r.n. pain, amiodarone 200 mg daily, Apixaban 5 mg b.i.d., vitamin D3 5000 units weekly, levothyroxine 50 mcg daily, lisinopril 10 mg daily, metoprolol extended release 50 mg daily, Movantik 25 mg daily, oxycodone extended release 20 mg 1 b.i.d., MiraLax 17 gram powder daily, ranitidine 75 mg b.i.d., sertraline 50 mg daily. She will stop her Meloxicam. She will stop her benzonatate. Her diet will be cardiac. Activity as tolerated. Daughter will take her home. She will follow up in the office with Dr. Fajardo within the next 2 weeks. W Amie RUIZ MD DR: LYNNETTE/dunia JOB#: [id number] / [id number]
[2016-10-25 03:02] VITALS: BP 145/55
[2016-10-25] MEDS: LEVOTHYROXINE 50 MCG TABLET PO SCH (06:28)
[2016-10-25 06:36] LABS: ALBUMIN/GLOBULIN RATIO 1.1 (1.0-1.7); CALCIUM 8.7 mg/dL (8.5-10.1); CREATININE 1.1 mg/dL (0.6-1.0); GFR 46.9; POTASSIUM 3.6 mmol/L (3.5-5.1); TOTAL BILIRUBIN 0.7 mg/dL (0.2-1.0); TOTAL PROTEIN 5.8 g/dL (6.4-8.2)
[2016-10-25 07:00] VITALS: BP 162/71
--- NOTE | 2016-10-25 07:43 | RAD ---
Portable chest, 10/24/2016: History: Congestive heart failure Comparison is made to a study from 07/01/2015. The heart is generally enlarged. There is calcific plaquing of the aorta. The pulmonary vascularity is normal. Previously seen right-sided pleural fluid has resolved. No acute infiltrates are seen. The bony structures are demineralized. Moderate degenerative changes are present both shoulders. IMPRESSION: 1. Cardiomegaly and aortic atherosclerosis. 2. No acute abnormality is detected.
[2016-10-25] MEDS ORDERED: POTASSIUM CHLORIDE 20 MEQ TABLET.ER. PO SCH (08:00)
[2016-10-25] MEDS: NALOXEGOL OXALATE 25 MG TABLET. PO SCH (09:26)
[2016-10-25] MEDS: APIXABAN 5 MG TABLET. PO SCH (09:27)
[2016-10-25] MEDS: LISINOPRIL 10 MG TABLET PO SCH (09:27)
[2016-10-25] MEDS: AMIODARONE HCL 200 MG TABLET PO SCH (09:27)
[2016-10-25] MEDS: METOPROLOL SUCC 24HR ER 50 MG TAB.ER.24H. PO SCH (09:27)
[2016-10-25] MEDS: SERTRALINE 50 MG TABLET. PO SCH (09:28)
[2016-10-25] MEDS: OXYCODONE ER 10 MG TAB.ER.12H. PO SCH (09:44)
[2016-10-25] MEDS: ACYCLOVIR 200 MG CAPSULE PO SCH ×2 (09:44→12:45)
[2016-10-25 10:43] VITALS: BP 139/60
[2016-10-25 14:43] VITALS: BP 132/56
[2016-10-25] MEDS: ANTI-COAG MONITOR BY PHARMACY. MC PRN (15:16)
== END 2016-10-25 15:25 | disposition home or self-care (01) | DRG 865 ==
LOC: ER 07:51 → 5 SOUTH 10:00
PROVIDERS: ADMIT Family Medicine; ATTEND Family Medicine
DX: B02.8 Zoster with other complications (principal); N17.0 Acute kidney failure with tubular necrosis; R39.2 Extrarenal uremia; D64.9 Anemia, unspecified; E03.9 Hypothyroidism, unspecified; E78.00 Pure hypercholesterolemia, unspecified; E78.5 Hyperlipidemia, unspecified; E87.6 Hypokalemia; F41.8 Other specified anxiety disorders; G89.29 Other chronic pain; I10 Essential (primary) hypertension; I48.0 Paroxysmal atrial fibrillation; Z96.649 Presence of unspecified artificial hip joint; I48.2 Chronic atrial fibrillation; K21.9 Gastro-esophageal reflux disease without esophagitis; K58.9 Irritable bowel syndrome, unspecified; Z83.3 Family history of diabetes mellitus; Z87.440 Personal history of urinary (tract) infections; Z90.49 Acquired absence of other specified parts of digestive tract; Z79.899 Other long term (current) drug therapy
CPT/HCPCS: 36415; 71010; 80048; 80053; 80061; 81001; 84443; 85027; 96374; J3010; J7030; 99285-25

== ENCOUNTER 2017-11-04 09:55 | Inpatient (IN) | payer OTHER ==
[2017-11-04 12:38] LABS: HEMOGLOBIN 10.7 g/dL (12.0-15.5); MEAN CORPUSCULAR HEMOGLOBIN 33 pg (25-35); MEAN CORPUSCULAR HGB CONC 33 g/dL (31-37); MEAN CORPUSCULAR VOLUME 100 fL (79-100); PLATELET COUNT 169 x10^3/uL (140-400); RED BLOOD COUNT 3.29 x10^6/uL (3.50-5.40); RED CELL DISTRIBUTION WIDTH 15.3 % (11.5-14.5); WHITE BLOOD COUNT 3.9 x10^3/uL (4.0-11.0)
[2017-11-04 12:51] LABS: ANION GAP 10 (6-14); BLOOD UREA NITROGEN 26 mg/dL (7-20); CALCIUM 8.8 mg/dL (8.5-10.1); CARBON DIOXIDE 28 mmol/L (21-32); CHLORIDE 102 mmol/L (98-107); CREATININE 1.2 mg/dL (0.6-1.0); GFR 42.3; GLUCOSE 97 mg/dL (70-99); POTASSIUM 4.3 mmol/L (3.5-5.1); SODIUM 140 mmol/L (136-145)
[2017-11-04 12:52] LABS: MAGNESIUM 2.2 mg/dL (1.8-2.4)
[2017-11-04 12:59] LABS: NT-PRO BNP 9366 pg/mL (0-449)
[2017-11-04] MEDS: FUROSEMIDE 100 MG/10 ML VIAL. IVP ×2 (13:09→20:39)
[2017-11-04] MEDS ORDERED: DICLOFENAC SODIUM 1% TOPICAL GEL 100GM TUBE. TP (13:30)
[2017-11-04] MEDS ORDERED: AMIODARONE HCL 200 MG TABLET. PO (14:00)
[2017-11-04] MEDS ORDERED: clonazePAM 0.5 MG TABLET PO (14:00)
[2017-11-04] MEDS: FERROUS SULFATE 325 MG TABLET. PO (14:07)
[2017-11-04] MEDS: oxyCODONE/APAP 5/325 1 TAB TABLET PO ×2 (14:22→20:51)
[2017-11-04] MEDS: AMIODARONE HCL 200 MG TABLET. PO (14:58)
[2017-11-04] MEDS: METOPROLOL TART IMMED RELEASE 50 MG TABLET. PO ×2 (14:59→20:41)
[2017-11-04] MEDS: PRIMIDONE 50 MG TABLET PO (17:42)
[2017-11-04] MEDS: APIXABAN 5 MG TABLET. PO (20:41)
[2017-11-04] MEDS: TOPIRAMATE 25 MG TABLET. PO (20:41)
[2017-11-04] MEDS ORDERED: METOPROLOL TART IMMED RELEASE 50 MG TABLET. PO (21:00)
[2017-11-04] MEDS ORDERED: cloNIDine HCL 0.1 MG TABLET PO ×2 (21:00)
[2017-11-05] MEDS: oxyCODONE/APAP 5/325 1 TAB TABLET PO ×2 (02:48→08:51)
[2017-11-05] MEDS: LEVOTHYROXINE 50 MCG TABLET PO (06:10)
[2017-11-05] MEDS: POTASSIUM CHLORIDE 10 MEQ TABLET.ER. PO (08:44)
[2017-11-05] MEDS: PANTOPRAZOLE 40 MG TABLET.DR. PO (08:44)
[2017-11-05] MEDS: PRIMIDONE 50 MG TABLET PO ×3 (08:44→17:18)
[2017-11-05] MEDS: ASCORBIC ACID 500 MG TABLET PO (08:44)
[2017-11-05] MEDS: AMIODARONE HCL 200 MG TABLET. PO (08:44)
[2017-11-05] MEDS: POLYETHYLENE GLYCOL 3350 17 GM PACKET. PO (08:45)
[2017-11-05] MEDS: APIXABAN 5 MG TABLET. PO (08:45)
[2017-11-05] MEDS: METOPROLOL TART IMMED RELEASE 50 MG TABLET. PO (08:45)
[2017-11-05] MEDS: FUROSEMIDE 100 MG/10 ML VIAL. IVP ×2 (08:45→17:18)
[2017-11-05] MEDS: oxyCODONE ER 10 MG TAB.ER.12H PO ×2 (12:00→20:23)
[2017-11-05 12:26] LABS: ADD MAN DIFF? NO
[2017-11-05 12:49] LABS: ALBUMIN 3.2 g/dL (3.4-5.0); ALBUMIN/GLOBULIN RATIO 1.1 (1.0-1.7); ALK PHOS 101 U/L (46-116); ALT (SGPT) 69 U/L (14-59); ANION GAP 8 (6-14); AST (SGOT) 37 U/L (15-37); BLOOD UREA NITROGEN 30 mg/dL (7-20); BUN/CREATININE RATIO 25 (6-20); CALCIUM 8.7 mg/dL (8.5-10.1); CARBON DIOXIDE 32 mmol/L (21-32); CHLORIDE 102 mmol/L (98-107); CREATININE 1.2 mg/dL (0.6-1.0); GFR 42.3; GLUCOSE 90 mg/dL (70-99); MAGNESIUM 2.2 mg/dL (1.8-2.4); POTASSIUM 3.8 mmol/L (3.5-5.1); SODIUM 142 mmol/L (136-145); TOTAL BILIRUBIN 0.6 mg/dL (0.2-1.0); TOTAL PROTEIN 6.2 g/dL (6.4-8.2)
[2017-11-05 12:51] LABS: BASO % 1 % (0-3); EOS # 0.1 x10^3/uL (0.0-0.7); EOS % 3 % (0-3); HEMATOCRIT 33.7 % (36.0-47.0); HEMOGLOBIN 11.3 g/dL (12.0-15.5); LYMPH # 0.8 x10^3/uL (1.0-4.8); LYMPH % 19 % (24-48); MEAN CORPUSCULAR HEMOGLOBIN 33 pg (25-35); MEAN CORPUSCULAR HGB CONC 34 g/dL (31-37); MEAN CORPUSCULAR VOLUME 99 fL (79-100); MONO # 0.3 x10^3/uL (0.0-1.1); MONO % 7 % (0-9); NEUT # 2.9 x10^3uL (1.8-7.7); NEUT % 70 % (31-73); PLATELET COUNT 174 x10^3/uL (140-400); RED BLOOD COUNT 3.41 x10^6/uL (3.50-5.40); RED CELL DISTRIBUTION WIDTH 14.8 % (11.5-14.5); WHITE BLOOD COUNT 4.1 x10^3/uL (4.0-11.0)
[2017-11-05] MEDS: FERROUS SULFATE 325 MG TABLET. PO (12:55)
[2017-11-05] MEDS: METOPROLOL TART IMMED RELEASE 25 MG TABLET. PO (20:22)
[2017-11-05] MEDS: TOPIRAMATE 25 MG TABLET. PO (20:23)
[2017-11-05 21:24] LABS: MRSA BY PCR Negative (Negative)
[2017-11-06] MEDS: PANTOPRAZOLE 40 MG TABLET.DR. PO (06:21)
[2017-11-06] MEDS: LEVOTHYROXINE 50 MCG TABLET PO (06:21)
[2017-11-06] MEDS: oxyCODONE ER 10 MG TAB.ER.12H PO ×2 (08:38→20:52)
[2017-11-06] MEDS: FUROSEMIDE 100 MG/10 ML VIAL. IVP ×2 (08:41→13:29)
[2017-11-06] MEDS: POLYETHYLENE GLYCOL 3350 17 GM PACKET. PO (08:43)
[2017-11-06] MEDS: METOPROLOL TART IMMED RELEASE 25 MG TABLET. PO ×2 (08:43→20:51)
[2017-11-06] MEDS: POTASSIUM CHLORIDE 10 MEQ TABLET.ER. PO (08:44)
[2017-11-06] MEDS: ASCORBIC ACID 500 MG TABLET PO (08:44)
[2017-11-06] MEDS: PRIMIDONE 50 MG TABLET PO ×3 (08:44→17:55)
[2017-11-06] MEDS: AMIODARONE HCL 200 MG TABLET. PO (10:28)
[2017-11-06] MEDS: FERROUS SULFATE 325 MG TABLET. PO (13:20)
[2017-11-06] MEDS ORDERED: FUROSEMIDE 40 MG/4 ML VIAL. IVP (14:00)
[2017-11-06 14:55] LABS: MAGNESIUM 2.2 mg/dL (1.8-2.4)
[2017-11-06 14:55] LABS: ANION GAP 9 (6-14); BLOOD UREA NITROGEN 31 mg/dL (7-20); CALCIUM 8.6 mg/dL (8.5-10.1); CARBON DIOXIDE 33 mmol/L (21-32); CHLORIDE 101 mmol/L (98-107); CREATININE 1.5 mg/dL (0.6-1.0); GFR 32.7; GLUCOSE 103 mg/dL (70-99); POTASSIUM 3.7 mmol/L (3.5-5.1); SODIUM 143 mmol/L (136-145)
[2017-11-06] MEDS: TOPIRAMATE 25 MG TABLET. PO (20:51)
[2017-11-07] MEDS: oxyCODONE/APAP 5/325 1 TAB TABLET PO (01:54)
[2017-11-07 05:07] LABS: ADD MAN DIFF? NO
[2017-11-07 05:17] LABS: BASO % 1 % (0-3); EOS # 0.1 x10^3/uL (0.0-0.7); EOS % 3 % (0-3); HEMOGLOBIN 10.9 g/dL (12.0-15.5); LYMPH # 1.1 x10^3/uL (1.0-4.8); LYMPH % 23 % (24-48); MEAN CORPUSCULAR HEMOGLOBIN 33 pg (25-35); MEAN CORPUSCULAR HGB CONC 33 g/dL (31-37); MEAN CORPUSCULAR VOLUME 99 fL (79-100); MONO # 0.4 x10^3/uL (0.0-1.1); MONO % 8 % (0-9); NEUT # 3.2 x10^3uL (1.8-7.7); NEUT % 66 % (31-73); PLATELET COUNT 173 x10^3/uL (140-400); RED BLOOD COUNT 3.35 x10^6/uL (3.50-5.40); RED CELL DISTRIBUTION WIDTH 14.5 % (11.5-14.5); WHITE BLOOD COUNT 4.9 x10^3/uL (4.0-11.0)
[2017-11-07] MEDS: PANTOPRAZOLE 40 MG TABLET.DR. PO (05:32)
[2017-11-07] MEDS: LEVOTHYROXINE 50 MCG TABLET PO (05:32)
[2017-11-07 05:37] LABS: ANION GAP 9 (6-14); BLOOD UREA NITROGEN 31 mg/dL (7-20); CALCIUM 8.4 mg/dL (8.5-10.1); CARBON DIOXIDE 32 mmol/L (21-32); CHLORIDE 102 mmol/L (98-107); CREATININE 1.3 mg/dL (0.6-1.0); GFR 38.6; GLUCOSE 89 mg/dL (70-99); POTASSIUM 3.2 mmol/L (3.5-5.1); SODIUM 143 mmol/L (136-145)
[2017-11-07] MEDS ORDERED: FUROSEMIDE 100 MG/10 ML VIAL. IVP (09:00)
[2017-11-07] MEDS: ASCORBIC ACID 500 MG TABLET PO (09:06)
[2017-11-07] MEDS: METOPROLOL TART IMMED RELEASE 25 MG TABLET. PO ×2 (09:07→20:24)
[2017-11-07] MEDS: PRIMIDONE 50 MG TABLET PO ×3 (09:07→18:42)
[2017-11-07] MEDS: POLYETHYLENE GLYCOL 3350 17 GM PACKET. PO (09:08)
[2017-11-07] MEDS: oxyCODONE ER 10 MG TAB.ER.12H PO ×2 (09:08→20:25)
[2017-11-07] MEDS: POTASSIUM CHLORIDE 10 MEQ TABLET.ER. PO (09:08)
[2017-11-07] MEDS: AMIODARONE HCL 200 MG TABLET. PO (09:18)
[2017-11-07] MEDS: FUROSEMIDE 40 MG/4 ML VIAL. IVP ×2 (10:19→15:43)
[2017-11-07] MEDS: POTASSIUM CHLORIDE 20 MEQ TABLET.ER. PO (10:19)
[2017-11-07] MEDS: FERROUS SULFATE 325 MG TABLET. PO (12:11)
[2017-11-07] MEDS: TOPIRAMATE 25 MG TABLET. PO (20:24)
[2017-11-08] MEDS: oxyCODONE/APAP 5/325 1 TAB TABLET PO ×2 (00:36→08:30)
[2017-11-08 05:02] LABS: ADD MAN DIFF? NO
[2017-11-08 05:15] LABS: BASO # 0.1 x10^3/uL (0.0-0.2); BASO % 1 % (0-3); EOS # 0.1 x10^3/uL (0.0-0.7); EOS % 2 % (0-3); HEMATOCRIT 31.3 % (36.0-47.0); HEMOGLOBIN 10.7 g/dL (12.0-15.5); LYMPH % 20 % (24-48); MEAN CORPUSCULAR HEMOGLOBIN 33 pg (25-35); MEAN CORPUSCULAR HGB CONC 34 g/dL (31-37); MEAN CORPUSCULAR VOLUME 98 fL (79-100); MONO # 0.4 x10^3/uL (0.0-1.1); MONO % 8 % (0-9); NEUT # 3.3 x10^3uL (1.8-7.7); NEUT % 69 % (31-73); PLATELET COUNT 173 x10^3/uL (140-400); RED BLOOD COUNT 3.21 x10^6/uL (3.50-5.40); RED CELL DISTRIBUTION WIDTH 14.7 % (11.5-14.5); WHITE BLOOD COUNT 4.8 x10^3/uL (4.0-11.0)
[2017-11-08 05:52] LABS: ANION GAP 9 (6-14); BLOOD UREA NITROGEN 31 mg/dL (7-20); CALCIUM 8.3 mg/dL (8.5-10.1); CARBON DIOXIDE 30 mmol/L (21-32); CHLORIDE 104 mmol/L (98-107); CREATININE 1.3 mg/dL (0.6-1.0); GFR 38.6; GLUCOSE 92 mg/dL (70-99); POTASSIUM 3.6 mmol/L (3.5-5.1); SODIUM 143 mmol/L (136-145)
[2017-11-08] MEDS: PANTOPRAZOLE 40 MG TABLET.DR. PO ×2 (06:03→08:29)
[2017-11-08] MEDS: LEVOTHYROXINE 50 MCG TABLET PO (06:03)
[2017-11-08] MEDS: METOPROLOL TART IMMED RELEASE 25 MG TABLET. PO (08:28)
[2017-11-08] MEDS: PRIMIDONE 50 MG TABLET PO ×2 (08:28→12:44)
[2017-11-08] MEDS: POTASSIUM CHLORIDE 10 MEQ TABLET.ER. PO (08:29)
[2017-11-08] MEDS: ASCORBIC ACID 500 MG TABLET PO (08:29)
[2017-11-08] MEDS: AMIODARONE HCL 200 MG TABLET. PO (08:29)
[2017-11-08] MEDS: oxyCODONE ER 10 MG TAB.ER.12H PO (08:30)
[2017-11-08] MEDS: FUROSEMIDE 40 MG/4 ML VIAL. IVP (09:00)
[2017-11-08] MEDS: POLYETHYLENE GLYCOL 3350 17 GM PACKET. PO (09:00)
[2017-11-08] MEDS: APIXABAN 5 MG TABLET. PO (11:00)
[2017-11-08] MEDS: TORSEMIDE 20 MG TABLET. PO (11:00)
[2017-11-08] MEDS ORDERED: ANTI-COAG MONITOR BY PHARMACY. MC (12:00)
[2017-11-08] MEDS: FERROUS SULFATE 325 MG TABLET. PO (12:44)
[2017-11-08] MEDS: ACETAMINOPHEN 325 MG TABLET. PO (12:44)
[2017-11-09] MEDS ORDERED: TORSEMIDE 20 MG TABLET. PO (09:00)
[2017-11-09] MEDS ORDERED: METOPROLOL SUCC 24HR ER 50 MG TAB.ER.24H. PO (09:00)
[2017-11-11] MEDS ORDERED: CHOLECALCIFEROL (VITAMIN D3) 5,000 UNIT CAPSULE PO (09:00)
== END 2017-11-08 13:00 | disposition home or self-care (01) | DRG 682 ==
LOC: 2 SOUTH 09:55 → 2 NORTH 09:55 → 2 SOUTH 09:55 → 2 NORTH 09:55 → 2 SOUTH 09:55
DX: N17.9 Acute kidney failure, unspecified (principal); I50.43 Acute on chronic combined systolic (congestive) and diastolic (congestive) heart failure; I27.20 Pulmonary hypertension, unspecified; I42.9 Cardiomyopathy, unspecified; I48.1 Persistent atrial fibrillation; B02.9 Zoster without complications; I48.2 Chronic atrial fibrillation; N39.0 Urinary tract infection, site not specified; D64.9 Anemia, unspecified; E03.9 Hypothyroidism, unspecified; E53.8 Deficiency of other specified B group vitamins; E78.5 Hyperlipidemia, unspecified; F41.8 Other specified anxiety disorders; I11.0 Hypertensive heart disease with heart failure; K21.9 Gastro-esophageal reflux disease without esophagitis; M19.90 Unspecified osteoarthritis, unspecified site; Z96.649 Presence of unspecified artificial hip joint; K57.90 Diverticulosis of intestine, part unspecified, without perforation or abscess without bleeding; R32 Unspecified urinary incontinence; Z79.01 Long term (current) use of anticoagulants
CPT/HCPCS: 36415; 71045; 80048; 80053; 83735; 83880; 85025; 85027; 87641; 93306; 97165-GO; 97530-GO; J1940